=== PATIENT | female | born 1950 | race American Indian/Alaskan Native ===

== ENCOUNTER 2021-02-10 12:37 | Outpatient (CLI) | payer MEDICARE ==
--- NOTE | 2021-02-10 14:03 | XRay Report ---
Pelvis and left hip 2 views INDICATION: Pain FINDINGS: Bilateral femoral heads well-seated in the acetabulum. No acute fracture dislocation. Super ior and inferior pubic rami appear intact. Sacrum appears normal. IMPRESSION: No acute findings. Signer Name: Manoj Isabel MD Signed: 02/10/2021 1:58 PM Workstation Name: [id number]
== END 2021-02-10 12:38 | disposition home or self-care (01) ==
LOC: XRAY 12:37
PROVIDERS: ATTEND Specialist
DX: M25.552 Pain in left hip (principal)